=== PATIENT | male | born 1965 | race Caucasian/White ===

== ENCOUNTER 2020-09-09 18:27 | Emergency (ER) | payer OTHER ==
[2020-09-09] MEDS ORDERED: Dexamethasone 10 MG/ML VIAL ONE (19:08)
--- NOTE | 2020-09-09 20:30 | RAD ---
XR Chest 1 View Portable History: Fever with wheezing Comparison: Radiograph 2017 Findings: Lungs are clear. No pneumothorax. No effusion. Cardiac silhouette and mediastinal contours are within normal limits. Prominent right anterior fifth rib seen en face. Old right rib fractures. Impression: No acute intrathoracic abnormality.
[2020-09-10 11:25] LABS: SARS-CoV-2 by NAA DETECTED (NotDetected)
[2020-09-10 11:26] LABS: SARS-CoV-2 MS2 Negative; SARS-CoV-2 N Gene Positive; SARS-CoV-2 S Gene Positive; SARS-CoV-2 orf1ab Positive
== END 2020-09-09 21:00 | disposition home or self-care (01) ==
LOC: ERS 18:27
DX: U07.1 COVID-19 (principal); I10 Essential (primary) hypertension; F17.210 Nicotine dependence, cigarettes, uncomplicated; Z79.899 Other long term (current) drug therapy
CPT/HCPCS: 71045; 87635; J1100; U0003